=== PATIENT | female | born 1965 | race Caucasian/White ===

== ENCOUNTER 2019-01-29 06:25 | Day surgery (SDC) | payer OTHER | END 2019-01-29 12:40 | disposition home or self-care (01) | LOC: AMB-ENDOS 06:25 | DX: K57.30 Diverticulosis of large intestine without perforation or abscess without bleeding (principal); K64.1 Second degree hemorrhoids; K92.1 Melena ==

== ENCOUNTER 2020-12-21 18:14 | Emergency (ER) | payer OTHER ==
[~2020-12-21] VITALS: Ht 170.2 cm; Wt 113.4 kg
[2020-12-21] MEDS ORDERED: AVALIDE 300-121 EACH PO (18:34)
[2020-12-21] MEDS ORDERED: ATIVAN0.5 M1 PO (18:34)
[2020-12-21] MEDS ORDERED: HYDRALAZINE HCL25 MG PO (18:34)
[2020-12-21] MEDS ORDERED: PROZAC10 MG PO (18:35)
[2020-12-21] MEDS ORDERED: ULTRAM50 MG PO (23:14)
== END 2020-12-21 23:33 | disposition home or self-care (01) ==
LOC: ER 18:14
DX: R10.13 Epigastric pain (principal); K57.30 Diverticulosis of large intestine without perforation or abscess without bleeding

== ENCOUNTER 2020-12-25 09:37 | Emergency (ER) | payer OTHER ==
[~2020-12-25] VITALS: Ht 157.5 cm; Wt 76.2 kg
[~2020-12-25 09:37] MED LIST: ATIVAN0.5 M1 PO; AVALIDE 300-121 EACH PO; HYDRALAZINE HCL25 MG PO; PROZAC10 MG PO; ULTRAM50 MG PO
[2020-12-25] MEDS ORDERED: RESTORIL15 MG PO (09:50)
[2020-12-25] MEDS ORDERED: PEPCID AC10 MG PO (09:52)
[2020-12-25] MEDS ORDERED: ORPHENADRINE C100 MG PO (16:51)
[2020-12-25] MEDS ORDERED: KETO10TA2 PO (16:51)
== END 2020-12-25 17:04 ==
LOC: ER 09:37
DX: K62.5 Hemorrhage of anus and rectum (principal); R10.32 Left lower quadrant pain; K57.92 Diverticulitis of intestine, part unspecified, without perforation or abscess without bleeding; I10 Essential (primary) hypertension; Z03.818 Encounter for observation for suspected exposure to other biological agents ruled out

== ENCOUNTER 2021-06-20 10:46 | Emergency (ER) | payer OTHER ==
[~2021-06-20] VITALS: Ht 170.2 cm; Wt 117.9 kg
[~2021-06-20 10:46] MED LIST changes: +KETO10TA2 PO; +ORPHENADRINE C100 MG PO; +PEPCID AC10 MG PO; +RESTORIL15 MG PO
[2021-06-20] MEDS ORDERED: INTESTINEX680 M1 PO (17:09)
[2021-06-20] MEDS ORDERED: PEPCID AC20 MG PO (17:09)
[2021-06-20] MEDS ORDERED: LEVSIN/SL0.125 MG PO (17:09)
[2021-06-20] MEDS ORDERED: AMOX-CLAV 875-1 EAC1 PO (17:09)
== END 2021-06-20 17:30 ==
LOC: ER 10:46
DX: K57.92 Diverticulitis of intestine, part unspecified, without perforation or abscess without bleeding (principal); R10.32 Left lower quadrant pain; K76.0 Fatty (change of) liver, not elsewhere classified; I10 Essential (primary) hypertension; Z88.8 Allergy status to other drugs, medicaments and biological substances

== ENCOUNTER 2021-06-29 13:07 | Emergency (ER) | payer OTHER ==
[~2021-06-29] VITALS: Ht 170.2 cm; Wt 117.9 kg
[~2021-06-29 13:07] MED LIST changes: +AMOX-CLAV 875-1 EAC1 PO; +INTESTINEX680 M1 PO; +LEVSIN/SL0.125 MG PO; +PEPCID AC20 MG PO
== END 2021-06-29 20:52 | disposition home or self-care (01) ==
LOC: ER 13:07
DX: K57.92 Diverticulitis of intestine, part unspecified, without perforation or abscess without bleeding (principal); N39.0 Urinary tract infection, site not specified; Z88.8 Allergy status to other drugs, medicaments and biological substances

== ENCOUNTER 2021-08-15 05:45 | Day surgery (SDC) | payer OTHER | END 2021-08-15 09:45 | disposition home or self-care (01) | LOC: AMB-ENDOS 05:45 | PROVIDERS: ATTEND Colon & Rectal Surgery | DX: K64.0 First degree hemorrhoids (principal); K57.30 Diverticulosis of large intestine without perforation or abscess without bleeding; K58.9 Irritable bowel syndrome, unspecified; Z88.6 Allergy status to analgesic agent; Z91.041 Radiographic dye allergy status; Z91.013 Allergy to seafood; Z20.822 Contact with and (suspected) exposure to COVID-19 ==

== ENCOUNTER 2022-03-14 08:45 | Inpatient (IN) | payer OTHER ==
[~2022-03-14] VITALS: Ht 152.4 cm; Wt 117.9 kg
[2022-03-14] MEDS ORDERED: ATIVAN2 M1 PO (10:26)
== END 2022-04-02 13:55 | disposition expired | DRG 329 ==
LOC: O/R 03-19 07:50 → SURG 03-19 08:45 → SURH 03-29 10:53 → ICU 04-01 21:25
PROVIDERS: ADMIT Colon & Rectal Surgery; ATTEND Colon & Rectal Surgery
PROC: 0DBP4ZZ Excision of Rectum, Percutaneous Endoscopic Approach (ICD-10-PCS; 2022-03-19)
PROC: 0DTN4ZZ Resection of Sigmoid Colon, Percutaneous Endoscopic Approach (ICD-10-PCS; 2022-03-19)
PROC: 0DN84ZZ Release Small Intestine, Percutaneous Endoscopic Approach (ICD-10-PCS; 2022-03-19)
PROC: 0DJD8ZZ Inspection of Lower Intestinal Tract, Via Natural or Artificial Opening Endoscopic (ICD-10-PCS; 2022-03-19)
PROC: 0DQ84ZZ Repair Small Intestine, Percutaneous Endoscopic Approach (ICD-10-PCS; principal; 2022-03-19 12:00)
PROC: 0D9670Z Drainage of Stomach with Drainage Device, Via Natural or Artificial Opening (ICD-10-PCS; 2022-03-22)
PROC: 0W9J30Z Drainage of Pelvic Cavity with Drainage Device, Percutaneous Approach (ICD-10-PCS; 2022-03-29)
PROC: 0BH17EZ Insertion of Endotracheal Airway into Trachea, Via Natural or Artificial Opening (ICD-10-PCS; 2022-04-01)
PROC: 5A1945Z Respiratory Ventilation, 24-96 Consecutive Hours (ICD-10-PCS; 2022-04-01)
DX: K57.32 Diverticulitis of large intestine without perforation or abscess without bleeding (principal); A41.9 Sepsis, unspecified organism; J95.821 Acute postprocedural respiratory failure; R65.21 Severe sepsis with septic shock; K56.7 Ileus, unspecified; K91.71 Accidental puncture and laceration of a digestive system organ or structure during a digestive system procedure; K91.89 Other postprocedural complications and disorders of digestive system; K92.0 Hematemesis; T81.43XA Infection following a procedure, organ and space surgical site, initial encounter; D62 Acute posthemorrhagic anemia; E87.20 Acidosis, unspecified; K29.60 Other gastritis without bleeding; N73.6 Female pelvic peritoneal adhesions (postinfective); E66.01 Morbid (severe) obesity due to excess calories; E11.8 Type 2 diabetes mellitus with unspecified complications; F41.9 Anxiety disorder, unspecified; K44.9 Diaphragmatic hernia without obstruction or gangrene; K25.9 Gastric ulcer, unspecified as acute or chronic, without hemorrhage or perforation